=== PATIENT | male | born 1955 | race African-American/Black ===

== ENCOUNTER 2017-01-29 12:05 | Emergency (ER) | payer OTHER ==
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
[~2017-01-29 12:05] MED LIST: BLOOD PRESSURE; FLEXERIL10 MG PO; GLUCOSE TAB PO; INSULIN SUBQ; KETOPROFEN PO; LORTAB 5/500 TA1 TA1 PO; LORTAB 5/500 TA1 TA2 PO
[2017-02-08] MEDS ORDERED: LIPITOR20 MG PO (10:05)
[2017-02-08] MEDS ORDERED: LO-DOSE ASPIRIN81 M1 PO (10:08)
[2017-02-08] MEDS ORDERED: ZESTRIL5 MG PO (10:08)
[2017-02-08] MEDS ORDERED: PLETAL100 M1 PO (10:08)
[2017-02-08] MEDS ORDERED: AMARYL PO (10:09)
[2017-02-08] MEDS ORDERED: DICLOFENAC SODI50 MG PO (10:09)
[2017-02-08] MEDS ORDERED: GABAPENTIN600 MG PO (10:10)
[2017-02-08] MEDS ORDERED: LANTUS100 U/ML SUBQ (10:10)
[2017-02-08] MEDS ORDERED: OXAYDO7.5 MG PO (10:12)
== END 2017-01-29 13:23 | disposition home or self-care (01) ==
LOC: CFTX 12:05
DX: S29.012A Strain of muscle and tendon of back wall of thorax, initial encounter (principal); S46.912A Strain of unspecified muscle, fascia and tendon at shoulder and upper arm level, left arm, initial encounter; E11.9 Type 2 diabetes mellitus without complications; I10 Essential (primary) hypertension; V43.52XA Car driver injured in collision with other type car in traffic accident, initial encounter
CPT/HCPCS: 72072; 73030; 99284

== ENCOUNTER → 2017-02-09 | Outpatient (CLI) | payer OTHER ==
[~2017-02-09] MED LIST changes: +AMARYL PO; +AMLODIPINE BESYL5 MG PO; +COREG3.125 MG PO; +DICLOFENAC SODI50 MG PO; +GABAPENTIN600 MG PO; +LANTUS100 U/ML SUBQ; +LIPITOR20 MG PO; +LO-DOSE ASPIRIN81 M1 PO; +OXAYDO7.5 MG PO; +PLETAL100 M1 PO; +ZESTRIL5 MG PO
--- NOTE | ~2017-02-09 | EKG ---
PATIENT: ANTHONY GUARDADO UNIT #: [id number] Ventricular Rate: 85 BPM Atrial Rate: 85 BPM P-R Interval: 132 ms QRS Duration: 100 ms Q-T Interval: 380 ms QTC Calculation(Bezet): 452 ms P [place]: 77 degrees Calculated R [place]: -69 degrees Calculated T [place]: 76 degrees Diagnosis Line: Normal sinus rhythm Diagnosis Line: Left axis deviation Diagnosis Line: Nonspecific T wave abnormality Diagnosis Line: Abnormal ECG Diagnosis Line: When compared with ECG of 22-NOV-2016 14:55, Diagnosis Line: QRS axis Shifted left Diagnosis Line: Nonspecific T wave abnormality now evident in Diagnosis Line: Lateral leads Diagnosis Line: Confirmed by MATTHEW DELGADO MD ([id number]) on Diagnosis Line: 02/09/2017 11:28:55 AM INTERPRETING MD: DANNY BASILIO
[2017-02-09 09:46] LABS: HEMATOCRIT 43.1 % (38.0-50.0); HEMOGLOBIN 14.4 gm/dL (13.0-16.0); MEAN CELL VOLUME 95.6 FL (83-96); MEAN CORPUSCULAR HGB CONC 33.4 g/dL (30-36); MEAN PLATELET VOLUME 7.4 FL (6.5-11.5); RED BLOOD COUNT 4.51 X10e (3.90-5.60); RED CELL DISTRIBUTION WIDTH 13.8 % (11.0-15.5); WHITE BLOOD COUNT 10.5 X10e3 (4.0-10.5)
[2017-02-09 10:13] LABS: PARTIAL THROMBOPLASTIN TIME 25.9 SECONDS (23.5-31.3); PROTHROMBIN TIME (PATIENT) 10.9 SECONDS (9.6-11.5)
[2017-02-09 10:16] LABS: BLOOD UREA NITROGEN 16 mg/dL (9-23); BUN/CREATININE RATIO 14.54; CALCIUM SERUM 9.9 mg/dL (8.4-10.2); CARBON DIOXIDE 30 mmol/L (22-31); CHLORIDE 100 mmol/L (100-111); CREATININE SERUM 1.1 mg/dL (0.6-1.4); GLOM FILT RATE Estimated ABOVE60 mL/min (>60); GLUCOSE FASTING 276 mg/dL (70-110); POTASSIUM 5.4 mmol/L (3.5-5.1); SODIUM 138 mmol/L (135-145)
== END | disposition home or self-care (01) ==
LOC: CCVL 09:17
PROVIDERS: Internal Medicine Cardiovascular Disease
PROC: 4A023N7 Measurement of Cardiac Sampling and Pressure, Left Heart, Percutaneous Approach (ICD-10-PCS; principal; 2017-02-09)
PROC: B211YZZ Fluoroscopy of Multiple Coronary Arteries using Other Contrast (ICD-10-PCS; 2017-02-09)
DX: I25.10 Atherosclerotic heart disease of native coronary artery without angina pectoris (principal); I08.0 Rheumatic disorders of both mitral and aortic valves; I10 Essential (primary) hypertension; E78.5 Hyperlipidemia, unspecified; I73.9 Peripheral vascular disease, unspecified; E87.5 Hyperkalemia; E11.649 Type 2 diabetes mellitus with hypoglycemia without coma; Z79.4 Long term (current) use of insulin; J44.9 Chronic obstructive pulmonary disease, unspecified; E87.1 Hypo-osmolality and hyponatremia; G47.30 Sleep apnea, unspecified; M13.0 Polyarthritis, unspecified; R25.2 Cramp and spasm; F17.210 Nicotine dependence, cigarettes, uncomplicated; Z79.82 Long term (current) use of aspirin; Z79.899 Other long term (current) drug therapy; Z87.09 Personal history of other diseases of the respiratory system; Z81.1 Family history of alcohol abuse and dependence; Z82.5 Family history of asthma and other chronic lower respiratory diseases; Z83.3 Family history of diabetes mellitus; Z80.9 Family history of malignant neoplasm, unspecified; Z82.49 Family history of ischemic heart disease and other diseases of the circulatory system; Z90.49 Acquired absence of other specified parts of digestive tract
CPT/HCPCS: 36415; 80048; 85027; 85610; 85730; 93005; C1769; C1887; C1894; J1644; J2250; J3010

== ENCOUNTER 2017-03-07 02:29 | Emergency (ER) | payer OTHER ==
--- NOTE | ~2017-03-07 | CR229 ---
[facility] A Service of [facility] RADIOLOGY TEXT RESULTS PATIENT: ANTHONY GUARDADO LOCATION: [facility] : 55 UNIT #: [id number] AGE: [address]: Hillary Thakur APRN SEX: M ORDER DR: [id number] [facility] [address] [place], [place] [address] [id number] E MR#: [id number] Acc #: [id number] NAME: ANTHONY GUARDADO : 1955 SEX: M STUDY DATE/TIME: 03/07/2017 UNIT: [facility] ROOM: STUDY DESCRIPTION: CR Shoulder Min 2 View Lt Attending Physician: Hillary Thakur A.P.R.N. Ordering Physician: Hillary Thakur A.P.R.N. Primary Care Physician: Sal Bartholomew M.D. MEDICAL IMAGING REPORT This report is preliminary unless electronic signature is present EXAM Left shoulder 03/07 at 02:42 INDICATIONS Shoulder pain after fall in bathroom tonight. FINDINGS 3 views of the left shoulder are compared with 01/29/2017. Again seen is AC joint and glenohumeral joint arthropathy. No acute fracture or dislocation is seen. IMPRESSION AC joint and glenohumeral joint arthropathy. No acute findings in the shoulder. Dictated by... Chester Ryan Jr., M.D. THIS IS AN ELECTRONICALLY VERIFIED REPORT Chester Ryan Jr., M.D. at 03/07/2017 11:15 AM ROC/caro TD: 03/07/2017 08:34 JOB #: [id number] MEDICAL IMAGING REPORT Page 1 of 1 COPY
--- NOTE | ~2017-03-07 | CR181 ---
[facility] A Service of [facility] RADIOLOGY TEXT RESULTS PATIENT: ANTHONY GUARDADO LOCATION: [facility] : 55 UNIT #: [id number] AGE: [address]: Hillary Thakur APRN SEX: M ORDER DR: [id number] [facility] [address] [place], [place] [address] [id number] E MR#: [id number] Acc #: [id number] NAME: ANTHONY GUARDADO : 1955 SEX: M STUDY DATE/TIME: 03/07/2017 02:49 UNIT: [facility] ROOM: STUDY DESCRIPTION: CR Lumbar Spine 2 or 3 Views Attending Physician: Hillary Thakur A.P.R.N. Ordering Physician: Hillary Thakur A.P.R.N. Primary Care Physician: Sal Bartholomew M.D. MEDICAL IMAGING REPORT This report is preliminary unless electronic signature is present EXAM Lumbar spine, 03/07 at 02: 49 INDICATIONS Low back pain after fall in bathroom tonight. FINDINGS 3 views of the lumbar spine are compared with 01/17/2015. Incidental note is made of atherosclerotic disease. There is degenerative disc disease predominately at L3-4. There is also some degenerative disease at L1-2. No fracture or subluxation is seen. IMPRESSION Degenerative disc disease at multiple levels. No fracture or subluxation. Dictated by... Chester Ryan Jr., M.D. THIS IS AN ELECTRONICALLY VERIFIED REPORT Chester Ryan Jr., M.D. at 03/07/2017 11:15 AM ROC/keturah TD: 03/07/2017 08:28 JOB #: [id number] MEDICAL IMAGING REPORT Page 1 of 1 COPY
--- NOTE | ~2017-03-07 | CR58 ---
[facility] A Service of [facility] RADIOLOGY TEXT RESULTS PATIENT: ANTHONY GUARDADO LOCATION: [facility] : 55 UNIT #: [id number] AGE: [address]: Hillary Thakur APRN SEX: M ORDER DR: [id number] [facility] [address] [place], [place] [address] [id number] E MR#: [id number] Acc #: [id number] NAME: ANTHONY GUARDADO : 1955 SEX: M STUDY DATE/TIME: 03/07/2017 02:44 UNIT: [facility] ROOM: STUDY DESCRIPTION: CR Cervical Spine 2 or 3 Views Attending Physician: Hillary Thakur A.P.R.N. Ordering Physician: Hillary Thakur A.P.R.N. Primary Care Physician: Sal Bartholomew M.D. MEDICAL IMAGING REPORT This report is preliminary unless electronic signature is present EXAM Cervical spine, 03/07 at 02: 44 INDICATION Neck pain after fall in bathroom this evening. FINDINGS 5 views of the cervical spine are compared with 10/20/2016. There is degenerative disc space narrowing and osteophyte formation at C3-4 and C5-6 with associated spondylolisthesis at these levels as well. This is unchanged. There is degenerative disc disease also noted at C6-7. No acute fractures are seen. Prevertebral soft tissues are normal. IMPRESSION Stable multilevel degenerative disease and multilevel spondylolisthesis. No acute fractures. ADDENDUM Bilateral carotid arterial calcifications are present. These could be assessed with outpatient carotid duplex ultrasound if needed. Dictated by... Chester Ryan Jr., M.D. THIS IS AN ELECTRONICALLY VERIFIED REPORT Chester Ryan Jr., M.D. at 03/07/2017 11:15 AM ROC/keturah TD: 03/07/2017 08:25 JOB #: [id number] MEDICAL IMAGING REPORT Page 1 of 1 COPY
[~2017-03-07 02:29] MED LIST changes: -AMLODIPINE BESYL5 MG PO; -COREG3.125 MG PO
== END 2017-03-07 03:55 | disposition home or self-care (01) ==
LOC: CED 02:29
DX: S16.1XXA Strain of muscle, fascia and tendon at neck level, initial encounter (principal); S46.912A Strain of unspecified muscle, fascia and tendon at shoulder and upper arm level, left arm, initial encounter; S39.012A Strain of muscle, fascia and tendon of lower back, initial encounter; I10 Essential (primary) hypertension; E11.9 Type 2 diabetes mellitus without complications; Z79.4 Long term (current) use of insulin; F17.210 Nicotine dependence, cigarettes, uncomplicated; Z79.899 Other long term (current) drug therapy; Z79.82 Long term (current) use of aspirin; W01.0XXA Fall on same level from slipping, tripping and stumbling without subsequent striking against object, initial encounter; Y92.89 Other specified places as the place of occurrence of the external cause
CPT/HCPCS: 72040; 72100; 73030; 96374; 99284

== ENCOUNTER 2017-04-09 16:28 | Inpatient (IN) | payer OTHER ==
--- NOTE | ~2017-04-09 | HP ---
Unit #: [id number] #: [id number] Patient: ANTHONY GUARDADO [id number] [address] [place], [place] [address] [id number] I MR#: [id number] NAME: ANTHONY GUARDADO. ROOM: 559 Age: 61 Sex: M Admission Date: 04/09/2017 : 1955 Attending Physician: Xavier Taylor M.D. Primary Care Physician: Sal Bartholomew M.D. HISTORY AND PHYSICAL CHIEF COMPLAINT Abdominal pain. DISCUSSION This is a 61-year-old gentleman with a history of coronary artery disease, insulin dependent diabetes, hypertension, dyslipidemia, history of (1) , history of pancreatitis in the past, history of ulcerative colitis, fci tobacco abuse, peripheral vascular disease. He came here with a chief complaint of having abdominal pain which is described diffuse upper abdominal pain. It has been going on for the last two weeks. He was also in emergency room at [facility] on 03/30/17. He said he was discharged home but did not get better. He came here and on workup he was found to have, on CT scan, acute pancreatitis, edema and a (2) around the head of pancreas and also increased amylase and lipase. Eventually had been admitted. He is complaining of diffuse upper abdominal pain, nausea, vomiting. No chest pain, no fever, no chills, no cough, no wheezing, no other complaint. PAST MEDICAL HISTORY 1. History of coronary artery disease. He said he had a cath in the past and was advised to have CABG but he declined at that time. 2. Insulin dependent diabetes. 3. Hypertension. 4. Dyslipidemia. 5. History of pancreatitis. 6. History of ulcerative colitis. 7. History of peripheral vascular disease. 8. care home tobacco abuse. PAST SURGICAL HISTORY 1. History of cholecystectomy. 2. History of left shoulder rotator cuff repair x2. SOCIAL HISTORY He smokes one pack daily for a long time. Denies alcohol, denies illicit drug use. FAMILY HISTORY Noncontributory. ALLERGIES No known drug allergies. MEDICATIONS Unit #: [id number] #: [id number] Patient: ANTHONY GUARDADO Medications from home: 1. Lantus 42 units at dinnertime, 24 units in the morning. 2. Gabapentin 600 mg twice daily. 3. Amlodipine 5 mg daily. 4. Coreg 3.125 twice daily. 5. Lipitor 20 mg daily. 6. Pletal 100 mg twice daily. 7. Zestril 5 mg daily. 8. Aspirin 81 mg daily. 9. Amaryl 4 mg twice daily. REVIEW OF SYSTEMS All review of systems negative except for History of Present Illness. PHYSICAL EXAMINATION GENERAL: Middle age man lying in the bed comfortably, currently not in any distress. He is alert, awake, oriented x3. CURRENT VITAL SIGNS: Temperature 98.5, heart rate 102, respiratory rate 15, blood pressure 146/63. HEENT: Pupils equal, reactive to light and accommodation. Head is normocephalic, atraumatic. NECK: Supple. No JVD. LUNGS: Clear to auscultation. No rhonchi, no wheezing. HEART: S1, S2. Regular rate and rhythm. ABDOMEN: Soft, bowel sounds positive. Diffuse tenderness positive. No guarding, no rigidity. EXTREMITIES: Inspection normal. No cyanosis, no clubbing, no pedal edema. NEURO: Alert and oriented x4. Cranial nerves II-XII intact. PSYCHIATRIC: Normal mood and affect. SKIN: No rash. DIAGNOSTIC STUDIES LABORATORY: Sodium 132, potassium 4, chloride 95, glucose 459, BUN 13, creatinine 1.1, AST 120, ALT 120, alkaline phos. 233. Lipase 20, amylase 102. CBC - white count 8.7, hemoglobin 13.1, hematocrit 41, platelet is 253. UA negative. IMAGING: CT abdomen and pelvis shows small amount of fluid and edema around the pancreatic head. There is also, on CT scan, shows occlusion of left common and left internal iliac artery. ASSESSMENT AND PLAN 1. Acute pancreatitis: Keep the patient on clear liquid diet, IV fluids, IV pain, morphine pain control, Zofran. 2. Abnormal liver function tests: Repeat CMP in the morning. He denies any alcohol abuse. 3. History of coronary artery disease: He said he had a cath done in the past, was advised for coronary artery bypass graft. 4. Peripheral arterial disease bilateral lower extremity, on Pletal. 5. Insulin dependent diabetes: Hold Lantus. Place on sliding scale. 6. History of hypertension. 7. Dyslipidemia. 8. History of pancreatitis. 9. History of ulcerative colitis in the past. Unit #: [id number] #: [id number] Patient: ANTHONY GUARDADO 10. Tobacco abuse. 11. DVT prophylaxis: Will place the patient on Lovenox. Dictated by Margareth Kruse/marco a TD: 04/10/2017 09:49 JOB #: [id number] HISTORY AND PHYSICAL Page 1 of 1 X X HISTORY AND PHYSICAL
--- NOTE | ~2017-04-09 | CT2 ---
[facility] A Service of [facility] RADIOLOGY TEXT RESULTS PATIENT: ANTHONY GUARDADO LOCATION: [facility] 55- : 55 UNIT #: [id number] AGE: [address]: Xavier Taylor MD SEX: M ORDER DR: [id number] [facility] [address] [place], [place] [address] [id number] I MR#: [id number] Acc #: [id number] NAME: ANTHONY GUARDADO. : 1955 SEX: M STUDY DATE/TIME: 04/09/2017 19:15 UNIT: [facility] ROOM: [facility] STUDY DESCRIPTION: CT Abd and Pelv W Cont Attending Physician: Xavier Taylor M.D. Ordering Physician: Rafa Dc M.D. Primary Care Physician: Sal Bartholomew M.D. MEDICAL IMAGING REPORT This report is preliminary unless electronic signature is present EXAM CT abdomen and pelvis with oral and IV contrast HISTORY Persistent epigastric pain, nausea and vomiting for [address] abdomen and pelvis was performed with oral and IV contrast. This CT exam was performed with one or more of the following radiation dose reduction techniques: automatic exposure control, adjustment of mA and/or kV according to patient size, and iterative reconstruction. FINDINGS CT abdomen Bibasilar emphysema. Fatty infiltration of the liver. Cholecystectomy. No biliary ductal dilatation. The spleen, left kidney, and adrenal glands are normal. 1 cm cyst in the lateral upper pole of the right kidney. Mild stranding about the pancreatic head and edema or inflammation within the pancreatic head, which could be due to focal pancreatitis. Correlation to pancreatic enzymes is recommended. Extensive atherosclerotic plaque in the infrarenal abdominal aorta. CT pelvis There is occlusion of the left common iliac artery and internal and external left iliac arteries with reconstitution of the distal left external iliac artery and reconstitution of the common femoral artery on the left. The right external iliac artery is occluded into the groin and the right common femoral artery and superficial femoral artery are occluded as well. Small amount of ascites in the pelvis. No bowel dilatation. Urinary bladder is normal. [facility]. [facility] A Service of [facility] RADIOLOGY TEXT RESULTS PATIENT: ANTHONY GUARDADO LOCATION: [facility] : 55 UNIT #: [id number] AGE: [address]: Xavier Taylor MD SEX: M ORDER DR: IMPRESSION 1. Small amount of fluid and stranding about the pancreatic head and probable edema or inflammation within the pancreatic head raising suspicion of focal pancreatitis in correlation to pancreatic enzymes and patient's symptoms is recommended. 2. There is occlusion of the left common iliac artery and left external iliac artery and the proximal left internal iliac artery with reconstitution of the left common femoral artery in the groin. There is also occlusion of the right external iliac artery and common femoral artery and proximal superficial femoral artery. Dictated by... Tom Davila M.D. THIS IS AN ELECTRONICALLY VERIFIED REPORT Tom Davila M.D. at 04/10/2017 2:41 PM DFL/to TD: 04/10/2017 10:19 JOB #: [id number] MEDICAL IMAGING REPORT Page 1 of 1 COPY
--- NOTE | ~2017-04-09 | DS ---
Unit #: [id number] #: [id number] Patient: ANTHONY GUARDADO [id number] [address] [place], [place] [address] [id number] MR#: [id number] NAME: ANTHONY GUARDADO. ROOM: 559 Age: 61 Sex: M Admission Date: 04/09/2017 : 1955 Discharge Date: 04/10/2017 Attending Physician: Xavier Taylor M.D. Primary Care Physician: Sal Bartholomew M.D. DISCHARGE SUMMARY DISCUSSION AND HOSPITAL COURSE Please note the patient left AMA. During morning rounds today I noted patient's heart monitor, as well as IV, had been taken out, and the patient is no longer present in the room. He is presumed to have left against medical advice; therefore, no further evaluation was done today. From what I can gather through history and physical, patient was admitted secondary to acute pancreatitis abdominal pain. CT abdomen and pelvis also did show lower extremity arterial occlusions, but again, these findings were not reviewed with patient, and further workup was not done as he left AMA. DISCHARGE DIAGNOSES 1. Acute pancreatitis. 2. Abnormal liver function test. 3. Prior history of coronary artery disease. 4. Prior history of peripheral arterial disease. 5. Diabetes with insulin dependence. 6. Hypertension. 7. Hyperlipidemia. 8. Ulcerative colitis. 9. Ongoing tobacco abuse. DISCHARGE MEDICATIONS Unknown. Patient left AMA. Dictated by... Margareth Sewell/jennifer TD: 04/12/2017 07:10 JOB #: [id number] Unit #: [id number] #: [id number] Patient: ANTHONY GUARDADO DISCHARGE SUMMARY Page 1 of 1 X Natalia Narvaez MD X DISCHARGE SUMMARY
[2017-04-09 17:39] LABS: URINE SOURCE CLEAN CATCH
[2017-04-09 17:45] LABS: BASOPHIL# 0.1 X10e3 (0-0.3); BASOPHIL% 0.6 % (0-2.5); EOSINOPHIL# 0.1 X10e3 (0-0.7); EOSINOPHIL% 0.8 % (0.0-7.0); HEMATOCRIT 41.1 % (38.0-50.0); HEMOGLOBIN 13.9 gm/dL (13.0-16.0); LYMPHOCYTE# 2.5 X10e3 (1.0-3.5); MEAN CELL VOLUME 94.1 FL (83-96); MEAN CORPUSCULAR HEMOGLOBIN 31.9 PG (28-34); MEAN CORPUSCULAR HGB CONC 33.9 g/dL (30-36); MEAN PLATELET VOLUME 7.9 FL (6.5-11.5); MONOCYTE# 0.5 X10e3 (0-1.0); MONOCYTE% 5.6 % (3.0-12.0); NEUTROPHIL# 5.6 X10e3 (1.5-7.1); PLATELET COUNT 253 X10e3 (140-420); RED BLOOD COUNT 4.36 X10e (3.90-5.60); RED CELL DISTRIBUTION WIDTH 12.8 % (11.0-15.5); WHITE BLOOD COUNT 8.7 X10e3 (4.0-10.5)
[2017-04-09 17:47] LABS: DIFF IND NO
[2017-04-09 17:47] LABS: URINE APPEARANCE CLEAR; URINE BILIRUBIN NEG (NEG); URINE BLOOD 1+ (NEG); URINE COLOR YELLOW; URINE GLUCOSE >1000 MG/DL (NEG); URINE KETONE NEG (NEG); URINE LEUKOCYTE ESTERASE NEG (NEG); URINE NITRATE NEG (NEG); URINE PH 5.5 (5-8); URINE PROTEIN 2+ (NEG); URINE SPECIFIC GRAVITY 1.036 (1.003-1.035)
[2017-04-09 17:50] LABS: URINE BACTERIA AUWI NEG (NEGATIVE); URINE SQUAMOUS EPITHELIAL CELL NONE SEEN /[HPF]; UWBCS1 AUWI 0-2 (0-5)
[2017-04-09 18:10] LABS: ALBUMIN SERUM 3.3 g/dL (3.5-5.0); BILIRUBIN, DIRECT 0.2 mg/dL (0.0-0.2); BILIRUBIN,INDIRECT 0.8 mg/dL (0.0-0.9); BUN/CREATININE RATIO 11.81; CALCIUM SERUM 8.6 mg/dL (8.4-10.2); CREATININE SERUM 1.1 mg/dL (0.6-1.4); GLOM FILT RATE Estimated 83.5 mL/min (>60); PROTEIN TOTAL SERUM 6.9 g/dL (6.0-8.3)
[2017-04-09 18:10] LABS: CULTURE INDICATED? NO
[2017-04-09] MEDS ORDERED: AMLODIPINE BESYL5 MG PO (21:04)
[2017-04-09] MEDS ORDERED: COREG3.125 MG PO (21:04)
== END 2017-04-10 15:01 | disposition left against medical advice (07) | DRG 440 ==
LOC: CED 16:28 → CEDOF 21:30 → CED 21:30 → C5B 22:48 → CEDOF 22:48 → C5B 22:48
PROVIDERS: Emergency Medicine
DX: K85.90 Acute pancreatitis without necrosis or infection, unspecified (principal); E11.51 Type 2 diabetes mellitus with diabetic peripheral angiopathy without gangrene; R94.5 Abnormal results of liver function studies; I25.10 Atherosclerotic heart disease of native coronary artery without angina pectoris; Z79.4 Long term (current) use of insulin; I10 Essential (primary) hypertension; E78.5 Hyperlipidemia, unspecified; F17.210 Nicotine dependence, cigarettes, uncomplicated; Z90.49 Acquired absence of other specified parts of digestive tract; Z79.82 Long term (current) use of aspirin
CPT/HCPCS: 36415; 74177; 80048; 80076; 81003; 82150; 82947; 83690; 85025; 96361; 96374; 96375; 96376; 99285; C9113; J1650; J1815; J2270; J2765; Q9967